=== PATIENT | female | born 1985 | race African-American/Black ===

== ENCOUNTER 2021-01-13 14:55 | Emergency (ER) | payer MEDICAID ==
[~2021-01-13] VITALS: Ht 170.2 cm; Wt 65.0 kg
[2021-01-13] MEDS ORDERED: ACETAMINOPHEN WITH CODEINE 300/30MG TABLET PO STA (15:34)
[2021-01-13] MEDS ORDERED: BALANCED SALT IRRIG SOLN 15ML TOP ONE (15:45)
[2021-01-13] MEDS ORDERED: TETRACAINE 0.5% OPHTH DROPS 4ML RIGHTEYE ONE (15:45)
[2021-01-13] MEDS ORDERED: FLUORESCEIN SODIUM 1MG/STRIP RIGHTEYE ONE (15:45)
[2021-01-13] MEDS ORDERED: BACITRACIN ZINC OINT UDPKT TOP ONE (17:15)
[2021-01-13] MEDS ORDERED: NAPR-681 PO (18:41)
[2021-01-13] MEDS ORDERED: CIPR5DRO RIGHTEYE (18:41)
[2021-01-13 19:24] VITALS: BP 114/78
== END 2021-01-13 19:27 | disposition home or self-care (01) ==
LOC: ER 15:56
DX: S00.11XA Contusion of right eyelid and periocular area, initial encounter (principal); S20.411A Abrasion of right back wall of thorax, initial encounter; X58.XXXA Exposure to other specified factors, initial encounter; Y93.89 Activity, other specified; Y92.89 Other specified places as the place of occurrence of the external cause; Y99.8 Other external cause status
CPT/HCPCS: 73090; 73140; 81025; 99284